=== PATIENT | male | born 1995 | race Two or more races ===

== ENCOUNTER 2017-01-15 20:25 | Emergency (ER) | payer SELFPAY ==
[~2017-01-15] VITALS: Ht 182.9 cm; Wt 125.0 kg
[2017-01-15] MEDS ORDERED: SODIUM CHLORIDE 0.9% 1,000 ML IV ONE (21:45)
[2017-01-15 21:46] VITALS: BP 130/61
[2017-01-15 21:57] LABS: BASOPHILS % 0.8 % (0.0-2.0); EOSINOPHILS % 0.6 % (0.0-5.0); HEMATOCRIT. 40.3 % (42.0-52.0); HEMOGLOBIN. 13.6 g/dL (14.0-18.0); LYMPHOCYTES % 11.4 % (20.0-50.0); MEAN CORPUSCULAR HEMOGLOBIN 26.4 pg (28.0-32.0); MEAN CORPUSCULAR VOLUME 78.3 fL (80.0-94.0); MEAN PLATELET VOLUME 7.9 fl (7.4-10.4); NEUTROPHILS % 83.2 % (40.0-76.0); PLATELET 297 x1000/uL (130-400); RED BLOOD CELL COUNT 5.15 mill/uL (4.7-6.1); RED CELL DISTRIBUTION WIDTH 14.1 % (11.6-14.6)
[2017-01-15 22:04] LABS: PARTIAL THROMBOPLASTIN TIME 24.7 sec (23.4-31.0); PROTHROMBIN TIME 10.9 sec (9.4-11.6)
[2017-01-15 22:06] LABS: CARBON DIOXIDE 25 mEq/L (21-32); CHLORIDE 108 mEq/L (98-107)
== END 2017-01-15 22:10 | disposition short-term general hospital (02) ==
LOC: ER 20:35
DX: R20.0 Anesthesia of skin (principal); M54.2 Cervicalgia; R79.1 Abnormal coagulation profile; V49.9XXA Car occupant (driver) (passenger) injured in unspecified traffic accident, initial encounter; Y93.89 Activity, other specified; Y92.89 Other specified places as the place of occurrence of the external cause; Z88.0 Allergy status to penicillin; Y99.8 Other external cause status
CPT/HCPCS: 36415; 80048; 85025; 85610; 85730; 99285; J7030